=== PATIENT | male | born 1970 | race Caucasian/White ===

== ENCOUNTER 2018-03-19 20:28 | Emergency (ER) | payer OTHER ==
[~2018-03-19] VITALS: Ht 172.7 cm; Wt 86.2 kg
[2018-03-19] MEDS ORDERED: ZYRTEC10 M5 PO (20:36)
[2018-03-19 21:10] VITALS: BP 119/79
== END 2018-03-19 21:11 | disposition home or self-care (01) ==
LOC: M.ERS 20:28
DX: S81.811A Laceration without foreign body, right lower leg, initial encounter (principal); Z88.0 Allergy status to penicillin; W26.8XXA Contact with other sharp object(s), not elsewhere classified, initial encounter; Y93.89 Activity, other specified; Y92.89 Other specified places as the place of occurrence of the external cause; Y99.8 Other external cause status